=== PATIENT | female | born 1965 | race Caucasian/White ===

== ENCOUNTER 2021-01-09 11:25 | Emergency (ER) | payer BC ==
[~2021-01-09] VITALS: Ht 157.5 cm; Wt 77.1 kg
[2021-01-09] MEDS: ACETAMINOPHEN ES 500 MG TABLET PO ONE ×2 (12:00→12:09)
[2021-01-09] MEDS ORDERED: IV NORMAL SALINE 1000 ML BAG IV ONE (12:00)
[2021-01-09 12:12] LABS: BASOPHILS % (AUTO) 0.2 % (0.0-2.0); EOSINOPHILS # (AUTO) 0.1 K/uL (0.0-0.7); EOSINOPHILS % (AUTO) 0.9 % (0.0-7.0); HEMATOCRIT 43.1 % (31.2-41.9); HEMOGLOBIN 14.3 g/dL (10.9-14.3); LYMPHOCYTES # (AUTO) 1.4 K/uL (20.0-40.0); LYMPHOCYTES % (AUTO) 24.6 % (20.5-51.5); MEAN CORPUSCULAR HEMOGLOBIN 29.7 uug (24.7-32.8); MEAN CORPUSCULAR HGB CONC 33 g/dL (32.3-35.6); MEAN CORPUSCULAR VOLUME 89.4 fL (75.5-95.3); MONOCYTES # (AUTO) 0.4 K/uL (2.0-10.0); MONOCYTES % (AUTO) 6.6 % (0.0-11.0); NEUTROPHILS # (AUTO) 3.9 K/uL (1.8-8.9); NEUTROPHILS % (AUTO) 67.7 % (38.5-71.5); PLATELET COUNT (AUTO) 293 K/uL (179-408); RED BLOOD CELL COUNT(AUTO) 4.82 MIL/uL (3.63-4.92); WHITE BLOOD COUNT (AUTO) 5.8 K/uL (3.8-11.8)
[2021-01-09 12:15] LABS: CREATININE 0.8 mg/dL (0.6-1.3); POTASSIUM 3.8 mmol/L (3.5-5.1)
[2021-01-09 12:16] LABS: LIPASE 82 U/L (73-393)
[2021-01-09 12:21] LABS: BILIRUBIN,DIRECT 0.1 mg/dL (0.0-0.2); BILIRUBIN,TOTAL 0.4 mg/dL (0.2-1.0); TOTAL PROTEIN, SERUM 7.6 g/dL (6.4-8.2)
[2021-01-09] MEDS ORDERED: SWABABLE VALVE TRANSFER SET EA MC ONE (12:21)
[2021-01-09] MEDS ORDERED: IV NORMAL SALINE 250 ML IV ONE (12:21)
[2021-01-09] MEDS ORDERED: IOHEXOL 300MG/ML 100 ML INFUS..BTL ONE (12:21)
--- NOTE | 2021-01-09 13:54 | NUR ---
Patient discharged to home in stable condition. Written and verbal after care instructions given. Patient verbalizes understanding of instructions. Stressed follow up or return to ER for worsening s/s.pt walks in steady gait. pt will use [employer] to go home.
[2021-01-09 13:57] VITALS: BP 121/77
== END 2021-01-09 13:58 | disposition home or self-care (01) ==
LOC: ER 11:25
DX: S09.90XA Unspecified injury of head, initial encounter (principal); S20.219A Contusion of unspecified front wall of thorax, initial encounter; S30.1XXA Contusion of abdominal wall, initial encounter; S16.1XXA Strain of muscle, fascia and tendon at neck level, initial encounter; V49.60XA Unspecified car occupant injured in collision with unspecified motor vehicles in traffic accident, initial encounter; Y92.410 Unspecified street and highway as the place of occurrence of the external cause
CPT/HCPCS: 36415; 70450; 71045; 72125; 74177; 80048; 80076; 83690; 84702; 85025; 93005; 96360; 99285; Q9967; A4663; J7030; J7050